=== PATIENT | male | born 1940 | race Hispanic/Latino ===

== ENCOUNTER 2019-09-09 08:05 | Day surgery (SDC) | payer MEDICARE ==
[2019-09-09 08:57] LABS: Blood Urea Nitrogen 19 mg/dL (9-20)
[2019-09-09] MEDS ORDERED: METOPROLOL TARTRATE 5 MG/5 ML INJ IV ONE (09:31)
[2019-09-09 10:00] VITALS: BP 123/59
[2019-09-09] MEDS ORDERED: NITROGLYCERIN 0.4 MG TAB SUBL SL ONE (10:30)
--- NOTE | 2019-09-09 10:55 | Cat Scan Report ---
LIMITED CTA CHEST Indication: Limited evaluation of the chest associated with cardiac CTA exam. Technique: Arterial phase technique utilized to evaluate the carotid arteries. Please refer to the of ficial cardiac CTA report for contrast details. All CT scans at this location are performed using CT dose reduction for ALARA by means of automated exposure control. Findings: No pathologic adenopathy. Mild chronic interstitial changes are noted at the lung bases. No infiltrate, nodule or pleural effusion.. There are degenerative changes in the spine with no acut e osseous abnormality. Limited imaging through the upper abdomen shows nothing acute. Impression: No significant incidental finding. Signer Name: Jackson Mera Jr, MD Signed: 09/09/2019 10:50 AM Workstation Name: [id number]
--- NOTE | 2019-09-25 07:34 | CT Calcium Scoring Report ---
Coronary Calcium Score Date of service: 09/25/19 Procedure: High-resolution computed tomographic imaging of the chest was performed on09/09/19 with particular attention paid to the coronary arteries. Images from the examination were analyzed for the presence and extent of coronary artery calcification, using coronary calcium quantification software. The patient tolerated the procedure well and there were no complications. The results of the coronary calcification analysis are provided below. The patient scores are compared with published data related to scores for people of a similar age and the same gender. - Findings Left Anterior Descending Artery: 222.13 Left Circumflex(LCX): 133.51 Right Coronary Artery(RCA): 127.36 Total Agatson Score: 483 Findings: Cardiac CTA Indication: chest pain, abnormal stress test Informed consent obtained Procedure: The patient was brought to the cardiac ct laboratory at [facility] in stable condition after a 4 hour fast. Heart rate was regulated by beta blockade. Sublingual ngt was administered. A coronary calcium score was performed via the Agatston method. Left ventricular function was assessed by the threshold based volumetric segmentation approach. A separate radiology assessment of the non cardiac structures in the field of view will be provided. Superior vena cava in the field of view appears normal Inferior vena cava in the filed of view appears normal Ascending aorta in the field of view is of normal diameter. mild degree of calcification in the ascending aorta Descending aorta in the field of view appears normal Pulmonary artery in the filed of view appears normal Pulmonary veins enter the left atrium appropriately Left ventricle appears normal. left ventricular ejection fraction 63% Right Ventricle appears normal Left atrium appears normal Left atrial appendage appears normal Right atrium appears normal Interventricular septum appears normal Interatrial septum appears normal Aortic valve contains a mild degree of calcification Mitral Valve appears normal. moderate degree radha annular calcification Intracardiac mass: none Pericardial effusion: none Coronary Angiography: Dominance: right Origins: normal Left main: normal Left anterior descending coronary artery and diagonal branches: diffuse non obstructive calcific plaque in the proximal and mid vessel Circumflex coronary artery and obtuse marginal branches: diffuse non obstructive calcific plaque in the proximal vessel Right coronary artery: diffuse non obstructive calcific plaque in the proximal vessel. mixed calcific/non calcific plaque 50-75% distal rca, 2mm vessel The procedure was tolerated well without procedural complications.
== END 2019-09-09 09:55 | disposition home or self-care (01) ==
LOC: CATHLABREC 08:05 → EDSTATUS 08:45 → CATHLABREC 09:55
PROVIDERS: ATTEND Internal Medicine Cardiovascular Disease
DX: R07.2 Precordial pain (principal); R94.39 Abnormal result of other cardiovascular function study; R91.8 Other nonspecific abnormal finding of lung field; M47.899 Other spondylosis, site unspecified; E78.00 Pure hypercholesterolemia, unspecified; I10 Essential (primary) hypertension; J45.909 Unspecified asthma, uncomplicated; Z88.0 Allergy status to penicillin; Z88.8 Allergy status to other drugs, medicaments and biological substances; Z79.899 Other long term (current) drug therapy; Z86.73 Personal history of transient ischemic attack (TIA), and cerebral infarction without residual deficits
CPT/HCPCS: 36415; 75574; 82565; 84520; Q9967